=== PATIENT | male | born 1995 | race African-American/Black ===

== ENCOUNTER 2021-10-31 15:30 | Emergency (ER) | payer MEDICAID, OTHER ==
[~2021-10-31] VITALS: Ht 175.3 cm; Wt 66.7 kg
[2021-10-31 15:45] VITALS: BP 122/74
--- NOTE | 2021-10-31 16:35 | NUR ---
ULTRASOUND IN LOBBY, PT NOT TO BE FOUND, PT CALLED
--- NOTE | 2021-10-31 16:51 | NUR ---
TAKEN TO US VIA WC
--- NOTE | 2021-10-31 17:45 | NUR ---
26/M PRESENTS TO ED WITH C/O TENDERNESS TO SCROTUM X2 DAYS. PATIENT STATES HE WAS SEEN AT URGENT CARE AND REFERRED TO COME TO ED FOR FURTHER EVALUATION. PATIENT REPORTS 7/10 SHARP PAIN THAT WORSENS WITH COUGH, DENIES SWELLING, DISCHARGE OR URINARY SYMPTOMS. PATIENT DENIES CONCERNS FOR STDS.
--- NOTE | 2021-10-31 18:20 | NUR ---
URINE COLLECTED AND WALKED TO LAB
[2021-10-31] MEDS ORDERED: ACET-10509 PO (18:23)
[2021-10-31 18:37] LABS: APPEARANCE,URINE CLEAR (CLEAR); BILIRUBIN,URINE NEGATIVE (NEGATIVE); BLOOD, URINE NEGATIVE (NEGATIVE); COLOR,URINE YELLOW (YELLOW); LEUKOCYTE ESTERASE ,URINE NEGATIVE (NEGATIVE); NITRITE, URINE NEGATIVE (NEGATIVE); UGLUCOSE NEGATIVE (NEGATIVE)
[2021-10-31 19:10] VITALS: BP 150/64
--- NOTE | 2021-10-31 19:10 | NUR ---
Patient discharged with v/s stable. Written and verbal after care instructions given and explained. Patient alert, oriented and verbalized understanding of instructions. Ambulatory with steady gait. All questions addressed prior to discharge. ID band removed. Patient advised to follow up with PMD. Rx of TYLENOL EXTRA STRENGTH given. Patient educated on indication of medication including possible reaction and side effects. Opportunity to ask questions provided and answered.
== END 2021-10-31 19:10 | disposition home or self-care (01) ==
LOC: MED 15:30
DX: R10.2 Pelvic and perineal pain (principal); N43.3 Hydrocele, unspecified; R03.0 Elevated blood-pressure reading, without diagnosis of hypertension; J45.909 Unspecified asthma, uncomplicated; F17.210 Nicotine dependence, cigarettes, uncomplicated; Z71.6 Tobacco abuse counseling; Z79.899 Other long term (current) drug therapy
CPT/HCPCS: 76870; 81003; 87086; 87491; 99284